=== PATIENT | male | born 1970 | race Caucasian/White ===

== ENCOUNTER 2016-12-03 14:04 | Observation (INO) | payer OTHER ==
[~2016-12-03] VITALS: Ht 175.3 cm; Wt 81.1 kg
[~2016-12-03 14:04] MED LIST: BABY ASA PO; BACL1TAB PO; PRAV20TA PO; VENL150C56 PO; VENL75CA PO
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
[2016-12-03] MEDS ORDERED: BACLOFEN TAB 20 MG TAB PO PRN (15:15)
[2016-12-03] MEDS ORDERED: ONDANSETRON INJ 8 MG in DEXTROSE 5% 50ML 50 ML IV PRN (15:15)
[2016-12-03] MEDS ORDERED: HYDROmorphone INJ 0.5 MG/0.5 ML SYR IV PRN (15:15)
[2016-12-03] MEDS ORDERED: NALOXONE HCL 0.4 MG/1 ML VIAL/CARP IV PRN ×2 (15:15→18:00)
[2016-12-03] MEDS ORDERED: DIAZEPAM 5MG TAB PO PRN (15:15)
[2016-12-03] MEDS ORDERED: CEFTRIAXONE SOD INJ 1 GM in DEXTROSE 5% ADD-VANTAGE 50ML 50 ML IV SCH (15:15)
[2016-12-03] MEDS ORDERED: HYDROCODONE/ACETAMOPHEN 5/325MG TAB PO PRN (15:15)
[2016-12-03] MEDS: LACTATED RINGER'S 1000ML 1,000 ML IV SCH (15:30)
[2016-12-03 16:02] VITALS: BP 120/78; PULSE 81; TEMP 36.8; O2SAT 94; Ht 175.3 cm; Wt 81.1 kg
[2016-12-03] MEDS ORDERED: VANCOMYCIN INJ 1,000 MG in SODIUM CHLORIDE 0.9% 250ML 250 ML IV SCH ×3 (16:15→22:00)
[2016-12-03 16:23] LABS: BASO % 0.4 %; BASO ABS # 0.04 K/uL (0-0.2); EOS % 1.1 %; IG% 0.2 %; LYMPH ABS # 1.69 K/uL (1.2-3.4); MEAN CELL VOLUME 85.4 fL (80-100); MEAN CORPUSCULAR HEMOGLOBIN 31.7 pg (25-34); MEAN PLATELET VOLUME 9.1 fL (7.4-10.4); MONO % 6.4 %; NEUT % 74.9 %; PLATELET COUNT 171 K/uL (130-400); RED BLOOD COUNT 4.92 M/uL (4.7-6.1); WHITE BLOOD COUNT 9.96 K/uL (4.8-10.8)
[2016-12-03] MEDS ORDERED: IV FLUIDS COMPLETED PRN (16:30)
[2016-12-03 16:58] LABS: CREATININE 0.67 mg/dl (0.60-1.40); POTASSIUM 4.4 mmol/L (3.5-5.1)
[2016-12-03 17:38] LABS: COMPLETE YES; MEAN CORPUSCULAR HGB CONC 37.1 g/dl (32-36)
[2016-12-03] MEDS ORDERED: ONDANSETRON INJ 2 MG/ML 2 ML VIAL IV PRN (18:00)
[2016-12-03] MEDS ORDERED: FLUMAZENIL 0.1 MG/1 ML 10 ML VIAL IV PRN (18:00)
[2016-12-03] MEDS ORDERED: EpHEDrine SULFATE INJ 50 MG/ML AMP IV PRN (18:00)
[2016-12-03] MEDS ORDERED: PHENYLEPHRINE 100MCG/ML 5ML SYR IV PRN (18:00)
[2016-12-03] MEDS ORDERED: FENTANYL CITRATE INJ 50 MCG/1 ML 2 ML VIAL IV PRN (18:00)
[2016-12-03] MEDS ORDERED: MEPERIDINE HCL 25 MG/ML CARP IV PRN (18:00)
[2016-12-03] MEDS ORDERED: ATROPINE SULFATE 0.1 MG/ML 5ML SYR IV PRN (18:00)
[2016-12-03] MEDS ORDERED: LABETALOL HCL IV 5 MG/ML 20ML IV PRN (18:00)
[2016-12-03] MEDS ORDERED: HYDROmorphone INJ 2 MG/ML SYR/VIAL IV PRN (18:00)
[2016-12-03] MEDS ORDERED: FENTANYL CITRATE INJ 50 MCG/1 ML 2 ML VIAL ONE (19:36)
[2016-12-03] MEDS ORDERED: LIDOCAINE HCL 2% 2 ML VIAL (20MG/ML) ONE (19:36)
[2016-12-03] MEDS ORDERED: MIDAZOLAM HCL 1 MG/ML 2ML VIAL ONE (19:36)
[2016-12-03] MEDS ORDERED: PROPOFOL IV EMULSION 10 MG/ML 20 ML VIAL IV ONE (19:41)
[2016-12-03] MEDS ORDERED: DEXAMETHASONE SOD INJ 4 MG/ML VIAL ONE (19:41)
[2016-12-03] MEDS ORDERED: ONDANSETRON INJ 2 MG/ML 2 ML VIAL ONE (19:42)
[2016-12-03] MEDS ORDERED: NEOSTIGMINE METHYLSULFATE 5 MG/5 ML SYR ONE (20:17)
[2016-12-03] MEDS ORDERED: GLYCOPYRROLATE INJ 0.2 MG/ML VIAL ONE (20:17)
[2016-12-03] MEDS ORDERED: BACITRACIN 50000 UNIT VIAL IR ONE (20:50)
[2016-12-03] MEDS ORDERED: KETOROLAC TROMETHAMINE 30 MG/ML VIAL ONE (20:50)
[2016-12-03] MEDS ORDERED: BUPIVACAINE/EPINEPHRINE 0.25% 1:200,000 30 ML VIAL INJ ONE (20:52)
--- NOTE | 2016-12-03 21:16 | [facility] Post Operative Brief Note ---
Immediate Operative Summary Operative Date Dec 03, 2016. Pre-Operative Diagnosis End of Life Intrathecal Baclofen Pump Post-Operative Diagnosis End of Life Intrathecal Baclofen Pump Procedure(s) Performed Intrathecal Pain Pump Replacement, Catheter Access Port Study, Analysis and Reprogramming of Intrathecal Pump Surgeon Dr. Starks Manufacturing Advisor Surgeon(s) none Estimated Blood Loss 10ml Findings uncomplicated pump exchange Specimens A. End of life explanted pump Drains none Anesthesia GETA Complication(s) None Disposition Recovery Room / PACU
[2016-12-03] MEDS ORDERED: BACLOFEN 10 MG TAB PO SCH (21:30)
--- NOTE | 2016-12-03 21:32 | Operative Note-Pain Management ---
Pain Clinic Operative Note PROCEDURE PERFORMED: Intrathecal pump replacement, catheter access port study, pump interrogation, reprogramming, and anaylsis. PREOPERATIVE DIAGNOSIS: end of life intrathecal pump POSTOPERATIVE DIAGNOSIS: Same. COMPLICATIONS: None. SURGEON: Dr. Iona Starks. ANESTHESIA: General. MATERIAL FORWARDED TO THE LAB: Explanted intrathecal pump. EBL:10ml INDICATIONS: The patient presented to the [facility] pain clinic with a an end of life pump alarming with motor stall, thus requiring replacement. The patient was explained the risks, benefits, alternatives of the procedure and agreed to proceed as above. Informed consent was obtained and witnessed. A time out was performed after the patient was brought into the Operating Room. Antibiotics were given. The patient was then induced with general anesthesia without complications and was placed in the left lateral position. The skin was prepped with duraprep and betadine and draped in sterile fashion. The existing pump was identified and using a scalpel, electrocautery, and blunt dissection, the existing pump was exposed. The four retaining sutures were removed and the old pump was explanted. The catheter was disconnected from the old pump and free flowing CSF was noted. 2 mL of CSF was aspirated from the catheter without difficulty. The new pump was opened and prepared according to [employer] standards. New baclofen 1500 mcg/mL was placed into the new pump. The pump catheter was secured to the new pump according to [employer] standards. The catheter access port was accessed and revealed free flowing CSF. Next, the pocket was irrigated with 3 bulb syringes full of sterile normal saline with bacitracin. Hemostasis was achieved. The new pump was placed into the pocket in the 12 O'clock position. The intrathecal pump was anchored in the pocket with 4 0 Prolene sutures. No complications were noted after the intrathecal pump was placed inside the pocket. Aspiration from the catheter access port revealed free flowing CSF. The skin and subcutaneous tissues of both incisions were closed with O-VLOC and then 2-O VLOC running sutures without complications. The skin was cleansed and dried and Prineo dermabond dressing was placed over the incision. Next, 4 x 4's and Tegaderms were placed for closure dressings. An abdominal binder was placed on the patient. No complications were noted throughout the procedure. The patient tolerated the procedure and general anesthesia well and was extubated at the end of the procedure. The patient was then transferred back to the [facility] and was taken to the recovery room in stable condition. The patient will follow up with our clinic within 14 days for further evaluation and care. Pump size inserted: 20ml Medication placed in pump: Baclofen 1,5000mcg/ml to run in Flex dosing for a total daily dose of 291 g per day. I attest to the content of the Intraoperative Record and any orders documented therein. Any exceptions are noted below.
--- NOTE | 2016-12-03 21:44 | Anesthesiology Progress Note ---
Anesthesia Post Op Note Date & Time Dec 03, 2016 at 21:43 Vital Signs Pain Intensity: 0 Vital Signs Past 12 Hours Date Time Temp Pulse Resp B/P (MAP) Pulse Ox O2 Delivery O2 Flow Rate FiO2 12/03/16 21:35 97 18 139/86 97 Oxymask 6 12/03/16 21:25 99 18 135/92 99 Oxymask 10 12/03/16 21:15 36.7 107 21 149/83 96 Oxymask 10 12/03/16 16:02 36.8 81 20 120/78 94 Room Air Notes Mental Status: alert / awake / arousable, participated in evaluation Pt Amnestic to Procedure: Yes Nausea / Vomiting: adequately controlled Pain: adequately controlled Airway Patency, RR, SpO2: stable & adequate BP & HR: stable & adequate Hydration State: stable & adequate Anesthetic Complications: no major complications apparent
[2016-12-03] MEDS ORDERED: ACETAMINOPHEN 500 MG TAB PO PRN (21:45)
[2016-12-03] MEDS ORDERED: ZOLPIDEM TARTRATE 5 MG TAB PO PRN (21:45)
[2016-12-03 22:08] VITALS: BP 125/79; PULSE 89; TEMP 37.2; O2SAT 91
[2016-12-03] MEDS: DOCUSATE SODIUM 100 MG CAP PO SCH (22:10)
[2016-12-03 22:14] VITALS: O2SAT 93
[2016-12-03] MEDS ORDERED: NURSING VERBAL MED ORDER ONE (23:00)
[2016-12-03] MEDS ORDERED: VENLAFAXINE HCL XR 150 MG CAPXR PO SCH (23:00)
[2016-12-03] MEDS ORDERED: PRAVASTATIN SOD 20 MG TAB PO SCH (23:00)
[2016-12-03] MEDS ORDERED: VENLAFAXINE HCL XR 75 MG CAPXR PO SCH (23:00)
[2016-12-03 23:29] VITALS: BP 111/66; PULSE 88; O2SAT 97
[2016-12-04] VITALS (7 sets, daily range): BP systolic 108–122; BP diastolic 64–80; PULSE 82–96; TEMP 36.7–37; O2SAT 93–98
[2016-12-04 01:01] LABS: URINE APPEARANCE CLEAR (CLEAR); URINE BILIRUBIN NEG (NEG); URINE COLOR YELLOW; URINE NITRITE NEG (NEG); URINE PH 6.5 (4.5-7.5); URINE SPECIFIC GRAVITY 1.016 (1.000-1.030); UROBILINOGEN NEG (NEG); ZZUR CULT IF INDIC CLEAN CATCH NO
[2016-12-04 01:07] LABS: MANUAL MICROSCOPIC REQUIRED? NO; REVIEW REQ? NO
[2016-12-04] MEDS: LACTATED RINGER'S 1000ML 1,000 ML IV SCH (01:30)
[2016-12-04] MEDS ORDERED: VANCOMYCIN INJ 1,000 MG in SODIUM CHLORIDE 0.9% 250ML 250 ML IV SCH ×4 (06:30)
--- NOTE | 2016-12-04 07:59 | Discharge Instructions ---
Discharge Instructions Date of Service Dec 04, 2016. Visit Reason for Visit: Failure Of Intrathecal Baclofen Pump Discharge Discharge Diagnosis / Problem: Intrathecal pump revision/replacment due to pump failure Discharge Goals Goal(s): Improve function, Increase independence Activity Recommendations Activity Recommendations: no repetitive bending, no repetitive twists, no repetitive reaching over head, no showers for 3 days Lifting Limitations: no more than 5 pounds Exercise/Sports Limitations: rest today May Resume Sexual Activity: after follow-up appointment Shower/Bathe: may shower/bathe in 3 days Driving or Machine Use: no limitations Anesthesia . Post Anesthesia Instructions: If you have had General Anesthesia or IV Sedation: * Do not drive today. * Resume driving when surgeon permits. * Do not make important decisions or sign legal documents today. * Call surgeon for: * Temperature elevations greater than 101 degrees F. * Uncontrollable pain. * Excessive bleeding. * Persistent nausea and vomiting. * Medication intolerance (nausea, vomiting or rash). * For nausea and vomiting use only clear liquids such as: tea, soda, bouillon until nausea subsides, then gradually increase diet as tolerated. * If you have any concerns or questions, call your surgeon's office. If physician is unavailable and it is an emergency, call 911 or go to the nearest emergency room. . Instructions Instructions / Follow-Up . * Change dressings daily. Apply sterile dry gauze. * Call [facility] [phone] or go to the nearest emergency room if he experience high fevers, new back pain, new neurological symptoms such as numbness or weakness in the lower extremity or new bowel bladder incontinence. Also of call if he experience a headache that is positional. * Wear abdominal binder. * No showers for 3 days. * Resume normal activity. No repetitive bending, twisting or reaching overhead for 2 weeks. Do not lift more than 5 pounds for 2 weeks. . Follow-Up Follow-Up: 1 week in office for wound check, staple removal in 2 weeks at clinic (2 week follow-up 12/18/2016 @ 1 PM) Diet Recommendations Home Diet: no limitations, resume previous diet Procedures Procedures Performed: Intrathecal Pain Pump Replacement, Catheter Access Port Study, Analysis and Reprogramming of Intrathecal Pump Pending Studies Studies pending at discharge: no Medical Emergencies . Who to Call and When: Medical Emergencies: If at any time you feel your situation is an emergency, please call 911 immediately. . Non-Emergent Contact Non-Emergency issues call your: Pain Management provider Call Non-Emergent contact if: you have a fever, wound has increased drainage, wound has increased redness, wound has increased pain, you have any medication questions [phone] . Past History Medical & Surgical History: (1) Baclofen intrathecal pump failure . "Provider Documentation" section prepared by [employer]. .
[2016-12-04] MEDS ORDERED: PRAVASTATIN SOD 20 MG TAB PO SCH (08:00)
[2016-12-04] MEDS: DOCUSATE SODIUM 100 MG CAP PO SCH (08:07)
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
[2016-12-04] MEDS ORDERED: VENLAFAXINE HCL XR 150 MG CAPXR PO SCH (09:00)
[2016-12-04] MEDS ORDERED: VENLAFAXINE HCL XR 75 MG CAPXR PO SCH (09:00)
--- NOTE | 2016-12-04 10:25 | Anesthesiology Progress Note ---
Anesthesia Post Op Note Date & Time Dec 04, 2016 at 10:24 Vital Signs Pain Intensity: 0.0 Vital Signs Past 12 Hours Date Time Temp Pulse Resp B/P (MAP) Pulse Ox O2 Delivery O2 Flow Rate FiO2 12/04/16 09:35 36.7 82 18 98 Room Air 12/04/16 08:00 Room Air 12/04/16 07:19 36.7 82 18 108/64 (79) 98 Room Air 12/04/16 04:00 94 Room Air 12/04/16 03:48 37.0 94 18 111/71 (84) 94 Room Air 12/04/16 01:08 88 16 122/80 (94) 93 Room Air 12/04/16 00:08 96 18 122/74 (90) 96 Nasal Cannula 2.0 12/04/16 00:02 96 Nasal Cannula 2.0 12/03/16 23:29 88 18 111/66 (81) 97 Notes Mental Status: alert / awake / arousable, participated in evaluation Pt Amnestic to Procedure: Yes Nausea / Vomiting: adequately controlled Pain: adequately controlled Airway Patency, RR, SpO2: stable & adequate BP & HR: stable & adequate Hydration State: stable & adequate Anesthetic Complications: no major complications apparent
--- NOTE | 2016-12-04 11:20 | Discharge Summary ---
Discharge Summary Date of Service Dec 04, 2016. Discharge Summary Admission Date: Dec 03, 2016 at 15:43 Discharge Date: Dec 04, 2016 Discharge Disposition: Home Principal Diagnosis: Chronic intractable extremity spasticity secondary to history of spinal cord injury requiring implantation of intrathecal baclofen pump and catheter delivery system with intrathecal pump failure requiring revision/replacement Procedures: Intrathecal baclofen pump revision/replacement Medication Reconciliation Continued Medications: Baclofen (Lioresal) 10 Mg Tab 10 MG PO PRN, #30 TAB Pravastatin (Pravachol ) 20 Mg Tab 20 MG PO QD@08, TAB Venlafaxine Hcl (Effexor Xr) 75 Mg Cap 1 CAP PO DAILY for 30 Days, #30 CAP 1 Refill Venlafaxine Hcl (Effexor Extended Rel) 150 Mg Cap 1 CAP PO DAILY for 30 Days, #30 CAP 1 Refill [Baby Asa] () 81 MG PO DAILY Hospital Course Patient was admitted on 12/03/2016 due to intrathecal baclofen pump malfunction. Patient was taken to operating room and intrathecal pump was revised/replaced by Dr. Iona Starks without complications. The patient began experiencing some slight increase in spasticity last evening which has at this time resolved as the pump is currently functioning correctly and appropriately. The patient utilize oral baclofen minimally for breakthrough spasticity. The patient was indicating adequate spasticity control upon today' s examination reporting that he was at his "baseline". Incisional site dressing was changed and instructions were provided. He will continue with abdominal binder usage 24 hours per day. Dressing changes will occur daily. He was then discharged to home. Total time spent on discharge = 30 minutes This includes examination of the patient, discharge planning, medication reconciliation, and communication with other providers. Discharge Instructions 1. Wound care instructed with daily dressing change 2. 24 hour use of the abdominal binder 3. Tylenol versus hydrocodone for incisional site pain-patient has prescription for hydrocodone with instructions on utilization 4. No tub baths, but patient may shower after 3 days 5. Contact the office immediately at [phone] for fevers, chills, night sweats, incisional drainage, increased spasticity or any other concerns.
[2017-01-15] MEDS ORDERED: ASPI1TAB83 PO (14:31)
== END 2016-12-04 10:41 | disposition home or self-care (01) ==
LOC: INTOOBSV 15:11 → C.2T 15:11 → UNDOADMIN 15:43 → UNDODISIN 12-04 10:41
PROVIDERS: ADMIT Anesthesiology; ATTEND Anesthesiology
DX: T85.698A Other mechanical complication of other specified internal prosthetic devices, implants and grafts, initial encounter (principal); Y83.1 Surgical operation with implant of artificial internal device as the cause of abnormal reaction of the patient, or of later complication, without mention of misadventure at the time of the procedure; M62.830 Muscle spasm of back; E78.5 Hyperlipidemia, unspecified; G82.52 Quadriplegia, C1-C4 incomplete; S34.109S Unspecified injury to unspecified level of lumbar spinal cord, sequela; S14.103S Unspecified injury at C3 level of cervical spinal cord, sequela; S14.104S Unspecified injury at C4 level of cervical spinal cord, sequela; S14.105S Unspecified injury at C5 level of cervical spinal cord, sequela; S14.106S Unspecified injury at C6 level of cervical spinal cord, sequela; S14.107S Unspecified injury at C7 level of cervical spinal cord, sequela; V89.2XXS Person injured in unspecified motor-vehicle accident, traffic, sequela; Z79.82 Long term (current) use of aspirin

== ENCOUNTER 2020-01-27 10:03 | Inpatient (IN) ==
--- NOTE | 2020-01-27 10:37 | Emergency Department Note ---
Impression & Plan Spasticity, Presence of intrathecal baclofen pump ED Provider Note Provider: Ramesh Silva MD DATE OF SERVICE:01/27/2020 CHIEF COMPLAINT: Contractures HISTORY OF PRESENT ILLNESS: Patient is a 49-year-old gentleman distant history of cervical spinal injury with some resultant spasticity presenting here today reports when he woke this morning around 8:00 of significant contractures predominantly of his legs and also noted of his bilateral upper arms. Denies any headache or recent trauma. States he was doing well yesterday before he went to bed but was a bit more active. Denies any trouble breathing or chest pain. Denies abdominal discomfort at this point. States occasionally had a little bit of lower inguinal discomfort at times and did have a hernia repair this summer but denies significant bulge or significant discomfort at this point. Patient denies diarrhea or nausea or vomiting. Patient said shortly stroking this event. Did take 2.5 mg of oral Valium which made him a bit drowsy but did not help his contractures very much prior to arrival. Patient does have an intrathecal baclofen pump which he states he will follow with pain management for not been having issues. Denies recent medication change. Patient states he has had events like this in the past but is been some time and sensor would might provoke this. Also reports that he was a bit diaphoretic but afebrile at 96 Fahrenheit when he awoke. Normally ambulates with a cane without significant issue. He denies any alarming from his baclofen pump. REVIEW OF SYSTEMS: A total of 10 review of systems was obtained and negative except as stated above in the HPI. PAST MEDICAL HISTORY: As noted above reviewed Medications: Home medication list SOCIAL HISTORY: Lives at home, non-smoker, PHYSICAL EXAM: GENERAL: alert and oriented on stretcher with obvious contracture of the extremities Head: normocephalic and atraumatic EYES: No injection, discharge or icterus. NECK: Trachea midline. Supple. ENT: Mucous membranes pink and moist. LUNGS: Airway patent. No retractions. Breath sounds clear HEART: Regular rate and rhythm. No chest wall tenderness ABDOMEN: Soft and non-tender, without guarding or rebound. Right-sided abdominal wall subcutaneous mass noted consistent with prior pain pump. SKIN: Acyanotic, warm, dry, without rashes EXTREMITIES: Without swelling, tenderness or deformity NEUROLOGICAL: No aphasia or slurred speech. Patient has no diminished sensation in the extremities. The upper and lower extremities have moderate contracture without any muscle wasting appreciated. EK bpm sinus tachycardia without PVC or PAC. No acute ST segment elevation or depression noted. Right bundle branch block is noted. CONTINUOUS CARDIAC MONITORING: was ordered and showed a heart rate of 98 bpm in normal sinus rhythm PDMP was checked without noted issue. Patient's laboratory studies and imaging reviewed. Differential includes Infection, dehydration, metabolic abnormality, hypo/hyperglycemia, electrolyte disturbance, anemia, hypoxia, cardiac sources, intracerebral event, toxicologic, neurologic, as well as other pathologies. IMPRESSION/MEDICAL DECISION MAKING: Patient presents here today onset of contractures likely related to history of prior cervical spine injury. Not having acute weakness or numbness. I doubt acute CVA. Reports a few chills and mild diaphoresis earlier but unsure what may be provoking symptoms at this point. Try a little bit of time prior to arrival with minimal effect given additional he was on IV fluids. Broad differential was entertained and broad work-up ordered to look for possible metabolic or infectious issues that may be causing his symptoms. Denies any URI symptoms or shortness of breath. There is no obvious evidence of abdominal tenderness or abdominal mass. Laboratory studies show a borderline leukocytosis of 10.[address] ALT above normal but no significant evidence of severe metabolic derangements explaining this. CK is not elevated. Urinalysis is still pending collection at this point. Not having to infectious symptoms and do not see clear source that could be provoking worsening spasticity at this point. Patient had some improvement after intravenous Valium and they have been working to try to stretch of the room. Ambulatory trial was held. Patient was unable to be even assisted out of bed due to his rigidity. Discussed with patient will try dose of oral baclofen. No alarms were noted on the pump per patient his but discussed with the pain management clinic who will come interrogate the pump. Reports he had a similar issue several years ago that self resolved but does not sound as severe. Also before that had issues requiring pump replacement once in the past. Pain management states he interrogated the pump there is no abnormality detected. X-rays were obtained to ensure catheter was not in discontinuity and though somewhat suboptimal x-rays do not show an acute issue. Patient still with significant spasticity. Discussed with the patient and he is having difficulty even walking at this point. I concerns about ability to do ADLs and function at home like this. In discussion with pain management/anesthesia Dr. Hay, recommended this time admission. Will utilize oral Valium and baclofen to try to help with spasticity. Evaluation thus far looks reassuring regarding the pump if there is continued issues he states may need to have further investigation of the pump itself and if in the unlikely event there is a true pump issue patient can develop life-threatening baclofen withdrawal if sent home. DIAGNOSIS: Spasticity DISPOSITION: Hospitalist will evaluate Patient was agreeable with this plan Past Med/Surg History Medical History (Updated 01/27/20 @ 15:40 by Ramesh Silva M.D.) Cervical cord myelomalacia Depressive disorder Dyslipidemia Muscle spasticity Presence of intrathecal baclofen pump Surgical History History of cervical spinal surgery 2007 History of inguinal herniorrhaphy 2009 History of orthopedic surgery Right femur surgery 2007 Social History Smoking Status: Never smoker Hx Alcohol Use: No Hx Substance Use: No Preferred Language: Y[place] Visual Impairment: No Limitations Hearing Ability: Normal Beliefs That Will Affect Care: None marital status: Current Living Situation: Spouse current occupational status: disabled Feels Safe at Home: Yes Allergies Allergies Allergy/AdvReac Type Severity Reaction Status Date / Time Penicillins Allergy Unknown ANAPHYLAXIS Verified 01/27/20 10:56 Home Meds Home Medications Medication Instructions Recorded Confirmed aspirin 81 mg tablet,delayed 81 mg PO Q2D 02/03/18 01/27/20 release simvastatin 20 mg tablet 20 mg PO QPM 02/03/18 01/27/20 venlafaxine 150 mg 150 mg PO QPM 04/22/18 01/27/20 capsule,extended release 24 hr diazepam 5 mg tablet 2.5 mg PO UD 01/13/19 01/27/20 venlafaxine 75 mg PO QPM 01/27/20 01/27/20 Results & Data (ED) Vital Signs Vital Signs - 24 hr 01/27/20 10:18 01/27/20 10:59 01/27/20 12:00 Temperature 36.6 C Temperature Source Oral Pulse Rate 106 H 70 Pulse Rate [Finger] 100 H Pulse Rate from SpO2 Sensor 69 Respiratory Rate 20 16 16 Blood Pressure 110/91 108/70 Blood Pressure [Right Arm] 128/76 Blood Pressure Mean 97 82 Blood Pressure Mean [Right Arm] 93 Pulse Oximetry 94 92 99 Oxygen Delivery Method Room Air Room Air Sepsis Recent Fever Within 48 Hours No Sepsis New/Unexplained Change in Mental Status No Sepsis Action Taken by Nursing No Action Required 01/27/20 12:30 01/27/20 13:51 01/27/20 14:00 Temperature Temperature Source Pulse Rate 68 105 H 102 H Pulse Rate [Finger] Pulse Rate from SpO2 Sensor 68 Respiratory Rate 16 21 21 Blood Pressure 113/66 128/71 107/72 Blood Pressure [Right Arm] Blood Pressure Mean 75 85 83 Blood Pressure Mean [Right Arm] Pulse Oximetry 98 94 93 Oxygen Delivery Method Sepsis Recent Fever Within 48 Hours Sepsis New/Unexplained Change in Mental Status Sepsis Action Taken by Nursing 01/27/20 14:30 01/27/20 15:47 Temperature Temperature Source Pulse Rate 102 H Pulse Rate [Finger] Pulse Rate from SpO2 Sensor 96 H Respiratory Rate 21 Blood Pressure 115/74 98/54 L Blood Pressure [Right Arm] Blood Pressure Mean 81 80 Blood Pressure Mean [Right Arm] Pulse Oximetry 95 95 Oxygen Delivery Method Sepsis Recent Fever Within 48 Hours Sepsis New/Unexplained Change in Mental Status Sepsis Action Taken by Nursing Laboratory Data Result diagrams: 01/27/20 10:22 01/27/20 10:22 Lab Results 01/27/20 01/27/20 01/27/20 Range/Units 10:22 10:22 10:22 WBC 10.84 H (4.8-10.8) K/uL RBC 5.27 (4.7-6.1) M/uL Hgb 16.0 (14.0-18.0) g/dL Hct 45.9 (42-52) % MCV 87.1 (80-100) fL MCH 30.4 (25-34) pg MCHC 34.9 (32-36) g/dL RDW Std Deviation 40.4 (36.4-46.3) fL RDW Coeff of Rachell 12.6 (11.5-14.5) % Plt Count 218 (130-400) K/uL MPV 9.8 (7.4-10.4) fL Immature Gran % (Auto) 0.2 % Neut % (Auto) 85.9 % Lymph % (Auto) 8.4 % Casey % (Auto) 4.9 % Eos % (Auto) 0.4 % Baso % (Auto) 0.2 % Neut # (Auto) 9.32 H (1.4-6.5) K/uL Lymph # (Auto) 0.91 L (1.2-3.4) K/uL Casey # (Auto) 0.53 (0.11-0.59) K/uL Eos # (Auto) 0.04 (0-0.5) K/uL Baso # (Auto) 0.02 (0-0.2) K/uL Immature Gran # (Auto) 0.02 (0.00-0.02) K/uL Sodium 137 (136-145) mmol/L Potassium 4.5 (3.5-5.1) mmol/L Chloride 106 (98-107) mmol/L Carbon Dioxide 27 (21-32) mmol/L Anion Gap 5.0 (3-11) BUN 17 (7-18) mg/dl Creatinine 0.78 (0.6-1.4) mg/dl Est Cr Clr Drug Dosing 122.0 ml/min Est GFR ( Amer) 121.1 Est GFR (Non-Af Amer) 104.5 BUN/Creatinine Ratio 22.0 H (10-20) Glucose 104 H (70-99) mg/dl Calcium 9.3 (8.5-10.1) mg/dl Magnesium 2.3 (1.8-2.4) mg/dl Total Bilirubin 0.4 (0.2-1) mg/dl AST 38 H (15-37) U/L ALT 96 H (12-78) U/L Alkaline Phosphatase 74 (45-117) U/L Total Creatine Kinase 270 (39-308) U/L Troponin I < 0.015 (0-0.045) ng/ml Total Protein 7.8 (6.4-8.2) gm/dl Albumin 3.9 (3.4-5.0) gm/dl Globulin 3.9 (2.5-4.0) gm/dl Albumin/Globulin Ratio 1.0 (0.9-2) Procalcitonin < 0.05 (0-0.5) ng/ml TSH 1.870 (0.300-4.500) uIu/ml Administered Medications Discontinued Medications Baclofen (Baclofen 10 Mg Tab) 10 mg PO ONCE ONE Stop: 01/27/20 13:25 Last Admin: 01/27/20 13:47 Dose: 10 mg Documented by: [id number] Diazepam (Diazepam 5 Mg/Ml Inj 10ml Vial) 5 mg IV NOW STA Stop: 01/27/20 10:37 Last Admin: 01/27/20 10:55 Dose: 5 mg Documented by: [id number] Sodium Chloride (Nss 1000ml) 1,000 mls @ 999 mls/hr IV .Q1H1M LENY Stop: 01/27/20 11:45 Last Infusion: 01/27/20 11:56 Dose: 0 mls/hr Documented by: [id number] Admin: 01/27/20 10:55 Dose: 999 mls/hr Documented by: [id number] Discharge Plan Visit Data Chief Complaint: Pain (Generalized) ED Provider: Ramesh Silva Discharge Problem: Spasticity, Presence of intrathecal baclofen pump Forms Stand Alone Forms: [facility] Prescriptions Prescriptions: No Action venlafaxine [Effexor XR] 150 mg capsule,extended release 24hr 150 mg PO QPM RF: 0 diazepam [Valium] 5 mg tablet 2.5 mg PO UD RF: 0 aspirin [Adult Low Dose Aspirin] 81 mg tablet,delayed release (DR/EC) 81 mg PO Q2D RF: 0 simvastatin [Zocor] 20 mg tablet 20 mg PO QPM RF: 0 venlafaxine 75 mg capsule,extended release 24hr 75 mg PO QPM RF: 0
[2020-01-27] MEDS ORDERED: SODIUM CHLORIDE 0.9% 1000ML 1,000 ML IV SCH (10:45)
[2020-01-27 11:02] LABS: Basophils # (auto) 0.02 K/uL (0-0.2); Basophils % (auto) 0.2 %; Eosinophils # (auto) 0.04 K/uL (0-0.5); Eosinophils % (auto) 0.4 %; Hematocrit (blood only) 45.9 % (42-52); Immature Granulocytes # (auto) 0.02 K/uL (0.00-0.02); Immature Granulocytes % (auto) 0.2 %; Lymphocytes # (auto) 0.91 K/uL (1.2-3.4); Lymphocytes % (auto) 8.4 %; Mean Corpuscular Hemoglobin 30.4 pg (25-34); Mean Corpuscular Hgb Conc 34.9 g/dL (32-36); Mean Corpuscular Volume 87.1 fL (80-100); Mean Platelet Volume 9.8 fL (7.4-10.4); Monocytes # (auto) 0.53 K/uL (0.11-0.59); Monocytes % (auto) 4.9 %; Neutrophils # (auto) 9.32 K/uL (1.4-6.5); Neutrophils % (auto) 85.9 %; Platelet Count 218 K/uL (130-400); RDW Coefficient of Variation 12.6 % (11.5-14.5); RDW Standard Deviation 40.4 fL (36.4-46.3); Red Blood Count 5.27 M/uL (4.7-6.1); White Blood Count 10.84 K/uL (4.8-10.8)
[2020-01-27 11:07] LABS: Alanine Aminotransferase 96 U/L (12-78); Albumin Level 3.9 gm/dl (3.4-5.0); Aspartate Aminotransferase 38 U/L (15-37); Blood Urea Nitrogen 17 mg/dl (7-18); Calcium 9.3 mg/dl (8.5-10.1); Carbon Dioxide 27 mmol/L (21-32); Chloride 106 mmol/L (98-107); Est GFR (African American) 121.1; Est GFR (Non-African American) 104.5; Glucose 104 mg/dl (70-99); Magnesium 2.3 mg/dl (1.8-2.4); Potassium 4.5 mmol/L (3.5-5.1); Sodium 137 mmol/L (136-145)
[2020-01-27 11:18] LABS: Alkaline Phosphatase 74 U/L (45-117); Bilirubin,Total 0.4 mg/dl (0.2-1); Creatine Kinase 270 U/L (39-308); Globulin 3.9 gm/dl (2.5-4.0); Total Protein 7.8 gm/dl (6.4-8.2); Troponin I < 0.015 ng/ml (0-0.045)
--- NOTE | 2020-01-27 11:21 | XRay Report ---
KUB CLINICAL HISTORY: Contractures. Baclofen pump. Weakness. FINDINGS: An AP supine abdominal radiograph is correlated with spinal radiographs dated 06/09/2017. Th ere is a nonobstructed abdominal bowel gas pattern noting moderate colonic fecal retention. No eviden ce of intraperitoneal free air is seen on this supine image. An IVC filter is in place. There are no abnormal abdominal calcifications. A pain pump device projects over the right lower quadrant. The cat heter enters the central canal at the level of L3 and extends into the thoracic region. The visualize d portions of the catheter appear intact. The skeletal structures are osteopenic but appear maintaine d. There is mild lumbosacral spondylosis and scoliosis. IMPRESSION: Moderate constipation. Electronically signed by: Brandyn Nicholas M.D. 01/27/2020 11:20 AM
--- NOTE | 2020-01-27 11:25 | XRay Report ---
XR chest 1V portable CLINICAL HISTORY: weakness COMPARISON STUDY: No previous studies for comparison. FINDINGS: Postoperative findings within the cervical spine are partially imaged. There is moderate el evation of the right hemidiaphragm. No consolidation is present. There is no evidence for pulmonary e rosalia. Cardiac size is normal. Mediastinal contours are unremarkable. There is no pneumothorax or pleu ral effusion. IMPRESSION: 1. No acute cardiopulmonary findings. 2. Moderate elevation of the right hemidiaphragm. ACT 112: Negative or not required by law. Electronically signed by: Harry Marquez M.D. 01/27/2020 11:23 AM
--- NOTE | 2020-01-27 12:48 | Electrocardiogram Report ---
Test Reason : Blood Pressure : / mmHG Vent. Rate : 106 BPM Atrial Rate : 106 BPM P-R Int : 140 ms QRS Dur : 112 ms QT Int : 366 ms P-R-T Axes : 060 201 044 degrees QTc Int : 486 ms Poor data quality, interpretation may be adversely affected Sinus tachycardia Right bundle branch block Abnormal ECG When compared with ECG of 03-DEC-2016 16:35, Vent. rate has increased BY 37 BPM Right bundle branch block is now Present Confirmed by Antonio Bruce ([id number]) on 01/27/2020 12:48:14 PM Referred By: Confirmed By:Taurus Bruce
[2020-01-27] MEDS ORDERED: BACLOFEN 10 MG TAB PO ONE (13:24)
--- NOTE | 2020-01-27 15:10 | XRay Report ---
XR lumbar spine min 4V routine HISTORY: 49 years-old Male pump catheter pain pump and catheter with possible complication. COMPARISON: Thoracic spine radiographs of same day, thoracolumbar radiographs 06/09/2017 TECHNIQUE: 5 views of the lumbar spine FINDINGS: Pack projects over the right flank. Pain pump catheter appears to enter the central canal at the L2-L 3 level, tip projecting superiorly outside the [id number]. Imaged portions of the catheter appeari ng intact. IVC filter is noted at the level of L2-L3. Mild lumbar levoscoliosis. Moderate multilevel interverteb ral disc space narrowing with spondylitic spurring and moderate to severe facet arthrosis. No acute f racture or subluxation. Severe disc space narrowing redemonstrated at L3-L4. Unremarkable soft tissue s. Partially imaged hardware of the right proximal femur. IMPRESSION: 1. Unchanged appearance of the intrathecal catheter with the imaged portions appearing intact. 2. Lumbar levoscoliosis with multilevel degenerative changes as above. 3. No acute fracture or subluxation. ACT 112: Negative or not required by law. The above report was generated using voice recognition software. It may contain grammatical, syntax o r spelling errors. Electronically signed by: Wale Hilton M.D. 01/27/2020 3:09 PM
--- NOTE | 2020-01-27 15:14 | XRay Report ---
XR thoracic spine 3V routine CLINICAL HISTORY: pump catheter COMPARISON STUDY: Thoracolumbar spine radiographs June 09, 2017. FINDINGS: Postoperative findings within the cervical spine are incidentally noted. There is moderate elevation of the right hemidiaphragm. Alignment of the thoracic spine is anatomic. There is no thorac ic spine fracture. Intrathecal catheter is suboptimally assessed on this exam but is likely intact. T ip is at the T8 level. Mild multilevel disc space narrowing and osteophytosis within the thoracic spi ne is noted. IMPRESSION: 1. No thoracic spine fracture or subluxation. 2. 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 3. Intrathecal catheter suboptimally assessed on this exam but likely intact. Tip at the T8 level. ACT 112: Negative or not required by law. Electronically signed by: Harry Marquez M.D. 01/27/2020 3:13 PM
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
[2020-01-27 18:53] LABS: Appearance Urine Clear (Clear); Bilirubin Urine Negative (Negative); Blood Urine Negative (Negative); Color Urine Yellow; Glucose Urine UA Negative (Negative); Ketones Urine Trace (Negative); Leukocyte Esterase Urine Negative (Negative); Nitrite Urine Negative (Negative); Protein Urine Negative (Negative); Specific Gravity Urine 1.018 (1.000-1.030); Urobilinogen Urine Negative (Negative)
--- NOTE | 2020-01-27 19:20 | Pain Management Consultation ---
Date of Consultation January 27, 2020 Assessment & Plan (1) Presence of intrathecal baclofen pump: 1. The patient admits to lifting heavy bags of Lyme weighing at least 40 pounds yesterday and subsequently has abrupt onset of spasms as of 8:00 this morning. I was unable to aspirate from the catheter access port and due to the abrupt nature of his spasms, lack of long-term tolerance of oral muscle relaxants and Valium, negative UA or other outward signs of infection, known fragility of older intrathecal catheters recommend catheter revision/replacement at this time. Patient was counseled on the risks, benefits, potential complications (infection, bleeding, damage to surrounding structures, failure to alleviate spasm, need for additional procedures to treat complications) of the procedure and agrees to proceed. Informed consent was obtained and witnessed. 2. Patient will be n.p.o. after midnight with holding heparin/ASA and instead utilizing SCDs in preparation for the OR. 3. In the interim we will utilize baclofen 10 to 20 mg p.o. every 6 as needed with Valium to minimize spasm. May use dantrolene if failing Valium and oral baclofen. 4. COVID testing has been ordered. Patient is low risk renal having no travel or known exposures in the last 14 days as well as no symptoms at present. 5. All of the above was discussed with patient and and they expressed understanding. (2) Spasticity: (3) Cervical cord myelomalacia: History of Present Illness History of Present Illness 49-year-old male well-known to the [facility] pain management office with a history of chronic lower extremity spasticity secondary to spinal cord injury. 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 He reports that up until this morning at 8 AM he had adequate control of his spasms. Since 8:00 this morning he has had an abrupt change in status with at least double the volume of typical spasm and rigidity. He denies any seizure type activity or outward signs of infection. He denies any fevers or chills. He denies any outward trauma to his intrathecal catheter or pump. Denies any twisting or pulling or snapping sensation. There is been no alarming of the pump he has 43 months on VASU. Dosing has been stable around 450 mcg/day. He denies any COVID signs or symptoms, travel, or potential exposure. He ate a turkey sandwich today at 1425. Allergies Allergy/AdvReac Type Severity Reaction Status Date / Time Penicillins Allergy Unknown ANAPHYLAXIS Verified 01/27/20 10:56 Home Medications Home Medications Medication Instructions Recorded Confirmed Type aspirin 81 mg tablet,delayed 81 mg PO Q2D 02/03/18 01/27/20 History release simvastatin 20 mg tablet 20 mg PO QPM 02/03/18 01/27/20 History venlafaxine 150 mg 150 mg PO QPM 04/22/18 01/27/20 History capsule,extended release 24 hr diazepam 5 mg tablet 2.5 mg PO UD 01/13/19 01/27/20 History venlafaxine 75 mg PO QPM 01/27/20 01/27/20 History Patient History Medical History (Updated 01/27/20 @ 19:16 by Iona Starks DO) Cervical cord myelomalacia Depressive disorder Dyslipidemia Muscle spasticity Presence of intrathecal baclofen pump Surgical History (Updated 01/27/20 @ 19:16 by Iona Starks DO) History of cervical spinal surgery 2007 History of inguinal herniorrhaphy 2009 History of orthopedic surgery Right femur surgery 2007 S/P insertion of intrathecal pump Social History Smoking Status: Never smoker Hx Alcohol Use: No Hx Substance Use: No Preferred Language: Emir[place] Visual Impairment: No Limitations Hearing Ability: Normal Beliefs That Will Affect Care: None marital status: Current Living Situation: Spouse current occupational status: disabled Feels Safe at Home: Yes Physical Exam Physical Exam: Constitutional: Well-developed, well-nourished, healthy- appearing, normal weight accompanied by his on today's examination Psych: Awake, alert, and oriented 3 with normal affect and mood. Recent memory appears grossly intact Eyes: Pupils are equally round and reactive to light with normal size pupils, eyelids appear normal Ear, nose, mouth, and throat: Moist nasal and oral membranes, lips and tongues appear normal, no external ear abnormalities are noted Neck: The trachea is midline without deviation and no thyromegaly is noted Respiratory: Normal respiratory effort without distress, no audible wheezes or rhonchi CV: Normal S1 and S2 extremities are warm Chest: Deferred GI/abdomen: Non-tender without guarding, no masses noted. Intrathecal pump noted in right lower quadrant without abnormality Musculoskeletal: Head is normocephalic and atraumatic, gait is not observed. Patient requires assistance to logroll in bed Patient has double the typical amount of spasticity noted as an outpatient bilateral upper and lower extremities. He has rigidity with clonus noted. I am able to passively extend his phalanges and upper extremity /lower extremities but with difficulty. He requests his to sign legal documents in lieu of himself due to difficulty with holding a pen. Thoracic: Kyphotic curve: Normal Axial intrathecal pump incision without abnormality Lumbar: Lordotic curve: Normal Skin: No rashes, lesions, ulcers, or induration noted Neuro: No nystagmus noted, the tongue is midline, the patient is able to rotate their head bilaterally : Deferred Catheter access port study procedure note Informed consent was obtained and witnessed. Patient's right lower quadrant was prepped with DuraPrep x2 and sterile drapes were applied. Next using a catheter access kit the 24-gauge Polo needle and template, the catheter access port was accessed and no fluid was able to be aspirated from the port. The needle was repositioned for separate times and the patient was rotated in the bed without ability to aspirate from the catheter. The needle was removed the abdomen was cleansed and a bandage was applied. Results (Pain Clinic) Laboratory Review Laboratory results: findings discussed with patient Additional Comments: UA negative Diagnostic Review Radiology: images reviewed and findings discussed with patient Radiology Findings: 01/27/2020 Thoracolumbar and KUB images. Intrathecal catheter is suboptimally visualized on exam. Terminates at T8. Previous Records Review Previous Records: personally reviewed by me Opioid Risk Assessment Opioid Risk Assessment: risk assessment performed and no issues identified
[2020-01-27] MEDS: SIMVASTATIN 20 MG TAB PO SCH (21:03)
[2020-01-27] MEDS: BACLOFEN 20 MG TAB PO SCH (21:03)
[2020-01-27] MEDS: diazePAM 5 MG TABLET PO SCH (21:03)
[2020-01-27] MEDS: VENLAFAXINE HCL XR 75 MG CAPXR PO SCH (21:04)
[2020-01-27] MEDS: VENLAFAXINE HCL XR 150 MG CAPXR PO SCH (21:04)
[2020-01-27] MEDS: POLYETHYLENE (MIRALAX) 17 GM PACK PO SCH (21:04)
[2020-01-28] MEDS: BACLOFEN 20 MG TAB PO SCH ×2 (04:58→14:19)
[2020-01-28] MEDS: diazePAM 5 MG TABLET PO SCH ×3 (04:58→21:40)
[2020-01-28] MEDS ORDERED: ROCURONIUM BROMIDE 10 MG/ML 5 ML VIAL IV ONE ×2 (07:22→11:03)
[2020-01-28] MEDS ORDERED: LIDOCAINE HCL 2% 2 ML VIAL/AMP(20MG/ML) INFIL ONE (07:22)
[2020-01-28] MEDS ORDERED: ONDANSETRON INJ 2 MG/ML 2 ML VIAL ONE (07:22)
[2020-01-28] MEDS ORDERED: DEXAMETHASONE SOD INJ 4 MG/ML VIAL ONE (07:22)
[2020-01-28] MEDS ORDERED: PROPOFOL IV EMULSION 10 MG/ML 20 ML VIAL IV ONE (07:22)
[2020-01-28] MEDS ORDERED: fentaNYL citrate 100 MCG/2 ML VIAL ONE (07:22)
[2020-01-28] MEDS ORDERED: MIDAZOLAM HCL 1 MG/ML 2ML VIAL ONE (07:22)
--- NOTE | 2020-01-28 07:26 | Anesthesiology Consultation ---
Date of Service January 28, 2020 Assessment & Plan Chart Review Chart Review: Acceptable Risk for Surgery and Patient NOT seen in Pre Admission Testing ASA ASA3 Proposed Anesthesia Anesthesia Type: General History Surgery Operation Date: 01/28/20 07:10 Proposed Procedures p Intrathecal Pain Pump replacement - Iona Starks DO Height/Weight Height: 5 ft 9 in Weight: 86.7 kg Allergies Allergy/AdvReac Type Severity Reaction Status Date / Time Penicillins Allergy Unknown ANAPHYLAXIS Verified 01/27/20 10:56 Medications Home Medications Medication Instructions Recorded Confirmed Last Taken aspirin 81 mg tablet,delayed 81 mg PO Q2D 02/03/18 01/27/20 01/26/20 release simvastatin 20 mg tablet 20 mg PO QPM 02/03/18 01/27/20 01/26/20 venlafaxine 150 mg 150 mg PO QPM 04/22/18 01/27/20 01/26/20 capsule,extended release 24 hr diazepam 5 mg tablet 2.5 mg PO UD 01/13/19 01/27/20 Unknown venlafaxine 75 mg PO QPM 01/27/20 01/27/20 01/26/20 Active Medications Generic Name Dose Route Start Last Admin Trade Name Freq PRN Reason Stop Dose Admin Baclofen 20 mg 01/27/20 20:00 01/28/20 04:58 Baclofen 20 Mg Tab PO 02/26/20 19:59 Not Given Q8H LENY Diazepam 5 mg 01/27/20 20:00 01/28/20 04:58 Diazepam 5 Mg Tablet PO 02/26/20 19:59 Not Given Q8H LENY Polyethylene Glycol 17 gm 01/27/20 21:00 01/27/20 21:04 Polyethylene (Miralax) 17 Gm Pack PO 02/26/20 20:59 Not Given BID LENY Simvastatin 20 mg 01/27/20 21:00 01/27/20 21:03 Simvastatin 20 Mg Tab PO 02/26/20 20:59 20 mg QPM LENY Administration Venlafaxine HCl 150 mg 01/27/20 21:00 01/27/20 21:04 Venlafaxine Hcl Xr 150 Mg Capxr PO 02/26/20 20:59 150 mg QPM LENY Administration Venlafaxine HCl 75 mg 01/27/20 21:00 01/27/20 21:04 Venlafaxine Hcl Xr 75 Mg Capxr PO 02/26/20 20:59 75 mg QPM LENY Administration NPO Date Last Intake of Fluids: 01/27/20 Time Last Intake of Fluids: 00:15 Date Last Intake of Solids: 01/27/20 Time Last Intake of Solids: 14:30 Past Medical History Medical History Cervical cord myelomalacia Depressive disorder Dyslipidemia Muscle spasticity Presence of intrathecal baclofen pump Exercise / Class Metabolic Activity III < 4 Walking/Shop/Light housework Past Surgical History Surgical History History of cervical spinal surgery 2007 History of inguinal herniorrhaphy 2009 History of orthopedic surgery Right femur surgery 2007 S/P insertion of intrathecal pump Past Anesthesia History No Hx of Anesthesia Complications and No Family Hx of Anesthesia Complications History of PONV No Hx of PONV and No Hx of Motion Sickness Social History Smoking Status: Never smoker Do You Dip or Chew Tobacco: Yes (Occasionally) Hx Alcohol Use: Yes Alcohol type: beer alcohol intake frequency: 0-2 drinks per day Hx Substance Use: No Physical Exam Vital Signs Last Vital Signs Temp 36.6 C 01/28/20 04:00 Pulse 92 H 01/28/20 04:00 Resp 20 01/28/20 04:00 BP 104/69 01/28/20 04:00 Pulse Ox 97 01/28/20 04:00 Testing Laboratory Results 01/27/20 10:22 01/27/20 10:22 Urine Color Yellow 01/27/20 18:45 Urine Appearance Clear (Clear) 01/27/20 18:45 Urine pH 6.0 (4.5-7.5) 01/27/20 18:45 Ur Specific [place] 1.018 (1.000-1.030) 01/27/20 18:45 Urine Protein Negative (Negative) 01/27/20 18:45 Urine Glucose (UA) Negative (Negative) 01/27/20 18:45 Urine Ketones Trace (Negative) H 01/27/20 18:45 Urine Nitrite Negative (Negative) 01/27/20 18:45 Ur Leukocyte Esterase Negative (Negative) 01/27/20 18:45 Electrocardiogram Date: 01/27/20 Findings: + RBBB and + ST @ (at 106) Chest X-Ray Date: 01/27/20 Findings: + NAD and + R hemidiaphragm elevation
--- NOTE | 2020-01-28 07:56 | History & Physical Bridge Note ---
Date of Service January 28, 2020 History & Physical Bridge Note I have examined the patient, reviewed the History & Physical and in the interval since the performance of the History & Physical I have noted the following changes of clinical significance: no changes noted
[2020-01-28] MEDS ORDERED: IOPAMIDOL INJ 61% 15 ML VIAL ONE (08:10)
[2020-01-28] MEDS ORDERED: LIDOCAINE/EPINE 2% 1:100,000 20ML ONE (08:11)
[2020-01-28] MEDS ORDERED: ePHEDrine sulfate 50 MG/ML AMP IV PRN (09:12)
[2020-01-28] MEDS ORDERED: FLUMAZENIL 0.1 MG/1 ML 10 ML VIAL IV PRN (09:12)
[2020-01-28] MEDS ORDERED: NALOXONE HCL 0.4 MG/1 ML VIAL/CARP IV PRN (09:12)
[2020-01-28] MEDS ORDERED: ONDANSETRON INJ 2 MG/ML 2 ML VIAL IV PRN (09:12)
[2020-01-28] MEDS ORDERED: fentaNYL citrate 100 MCG/2 ML VIAL IV PRN (09:12)
[2020-01-28] MEDS ORDERED: PROMETHAZINE HCL 12.5 MG in SODIUM CHLORIDE 0.9% 50 ML IV PRN (09:12)
[2020-01-28] MEDS ORDERED: LABETALOL HCL IV 5 MG/ML 20ML IV PRN (09:12)
[2020-01-28] MEDS ORDERED: ATROPINE SULFATE 0.1 MG/ML 10ML SYR IV PRN (09:12)
[2020-01-28] MEDS ORDERED: PHENYLEPHRINE 100MCG/ML 5ML SYR ONE (09:30)
[2020-01-28] MEDS ORDERED: SODIUM CHLORIDE 0.9% INJ 10 ML VIAL ONE (10:14)
[2020-01-28] MEDS ORDERED: GLYCOPYRROLATE 0.2 MG/ML VIAL ONE (10:31)
[2020-01-28] MEDS ORDERED: NEOSTIGMINE METHYLSULFATE 5 MG/5 ML SYR ONE (11:03)
[2020-01-28] MEDS: POLYETHYLENE (MIRALAX) 17 GM PACK PO SCH ×2 (11:22→21:52)
--- NOTE | 2020-01-28 11:28 | Operative Report ---
Post Operative Report Pre & Post Diagnosis Operation Date: 01/28/20 07:10 Pre-Op Diagnosis: 1. Spasticity. 2. Presence of intrathecal baclofen pump with discontinuity of the catheter. Post-Op Diagnosis: Same I identified the patient and participated in the time-out.: Yes Procedure Operation Date: 01/28/20 07:10 Actual Procedures 1. Explantation of intrathecal catheter.- Iona Starks DO 2. Implantation of new intrathecal catheter. Surgeon Yobani López MD, FIPP Swatcher Iona Starks DO. Estimated Blood Loss 35 Findings Consistent with Post-Op Diagnosis Specimens None Drains None Anesthesia Type General Complications none Disposition Accompanied Patient To Recovery: No Disposition: Recovery Room Description of Procedure INTRATHECAL CATHETER REVISION OPERATIVE REPORT PREOPERATIVE DIAGNOSIS: Nonfunctional intrathecal catheter. POSTOPERATIVE DIAGNOSIS: Same. PROCEDURE: 1. Remove migrated catheter. 2. Insertion of new catheter. 3.. Postoperative reprogramming of intrathecal drug delivery system pump. INDICATIONS: Jose Keating is a 49-year-old male with spasticity and rigidity due to spinal cord injury. He has intrathecal drug delivery system infusing baclofen with good efficacy of until yesterday morning when he started experiencing severe rigidity and spasticity acutely. He presented to the [facility] room where he was given additional baclofen, diazepam and evaluated for any source of infection as a cause of his increased spasticity. Aspiration of the catheter was performed and CSF would not be able to be aspirated. Further imaging demonstrated possible fracture site of the catheter and therefore he was advised to have exploration and possible removal and replacement of the catheter. He agreed and gave informed consent to proceed. COMPLICATIONS: None. ANESTHESIA: General. DESCRIPTION OF PROCEDURE: The patient had an existing intrathecal pump with the catheter that had migrated in the epidural space. Patient was not achieving the efficacy from the intrathecal dose of the baclofen. Evaluation limited the catheter to be not in the thecal space. Prior to starting, the Patients diagnosis and the procedure were reviewed with the patient in detail. Possible risks and complications including infection, bleeding, damage to surrounding structures and increased pain were discussed. Alternative therapies were also reviewed. Patients questions were answered and they agreed to proceed. Informed consent was obtained. Allergies and medication list was reviewed. Biplanar fluoroscopy was used to assist in placement of the needle as well as to evaluate the final needle and catheter positions. The patient was brought to the operating room and general anesthesia was induced by members of the department. Patient was then placed in left lateral decubitus position. Immediately prior to starting the procedure, a ``time out was conducted with the staff where the patient was identified, proposed procedure was verified, consent was reviewed and the proper site for the planned procedure was identified. Preoperative antibiotics for prophylaxis were given through the IV. On examination, no signs of skin breakdown or infection were noted at the injection site. The site was cleansed with DuraPrep followed by Betadine. Sterile drapes were applied in the usual fashion. Incision was made at the previous catheter insertion site. The existing catheter was located and anchor was disconnected and removed. Inspection of the catheter demonstrated a partial fracture at 29 cm ade. It was therefore elected to replace the catheter. Next, using biplanar fluoroscopy an 16-gauge Touhy needle was used to gain access to the intrathecal sac at L2/L3 interspace. Clear free cerebral spinal fluid flow without any blood. Catheter was threaded so that the catheter tip was at the portion of T8 vertebra. Stylet was removed and free CSF flow was aspirated. Touhy needle was then removed. The intrathecal catheter was secured to the dorso-lumbar fascia with 2 purse string 0-0 silk sutures. The anchoring device was then placed over the catheter and secured using 0 silk. Next, the medial portion of the pump pocket site was opened using scalpel electrocautery. The connector was identified and disconnected. The entire catheter was removed through the pump pocket site without any remaining pieces of the cath. Using a tunneling device wound was then passed to the pocket site and connected to the pump using the connector device. Both wounds were then irrigated with Betadine containing normal saline. Hemostasis was achieved. Deep layers were closed using 0 antibiotic-coated Stratafix suture and superficial layer to close using 3-0 antibiotic-coated Stratafix suture. Perineo dressing followed by 4 x 4 gauze and Tegaderm were used for dressing. Pump was then reprogrammed program to deliver baclofen for 50 mcg/day (10% reduction). Concentration of the medication was 20 mcg/mL. Catheter volume was 0.251 mL with the prime volume of 0.311 mL. Total length of catheter utilized was 114.3 cm. No complications were noted throughout the procedure. The patient tolerated the procedure and general anesthesia without obvious complications.. Patient was allowed to emerge from anesthesia at the end of the procedure and transferred back to the stretcher. Patient was transported to the recovery room in stable condition. The patient will follow up with our clinic within 7 days for a wound check and then plan to have the vero removed at day 14. Level of catheter: T8 Catheter trimmed to: 0 cm. Total length 114.3 cm Medication placed in pump: Baclofen 3000 mcg/mL. Total daily dose of 450 micrograms per day. I attest to the content of the Intraoperative Record and any orders documented therein. Any exceptions are noted below.
[2020-01-28] MEDS ORDERED: ceFAZolin 2000MG 2,000 MG/15 ML SYR IV ONE (11:34)
[2020-01-28] MEDS ORDERED: HYDROCODONE/ACETAMOPHEN 5/325MG TAB PO PRN (12:15)
--- NOTE | 2020-01-28 12:48 | Anesthesiology Progress Note ---
Date of Service January 28, 2020 Anesthesia Post Procedure Vital Signs Vital Signs: Temp Pulse Pulse Pulse Resp BP BP 01/28/20 12:30 36.9 C 106 H 19 107/63 01/28/20 12:20 36.9 C 109 H 20 108/70 01/28/20 12:10 106 H 18 104/63 01/28/20 12:00 108 H 20 119/70 01/28/20 11:50 107 H 21 104/64 01/28/20 11:43 36.1 C L 101 H 16 121/98 01/28/20 07:45 36.2 C L 99 H 20 147/79 H 01/28/20 07:40 94 H 01/28/20 04:00 36.6 C 92 H 20 104/69 01/28/20 01:27 75 01/27/20 19:36 37 C 101 H 113 H 20 01/27/20 18:30 108/71 01/27/20 18:00 130/84 01/27/20 17:38 87 18 01/27/20 17:00 129/75 01/27/20 16:30 81 116/72 01/27/20 15:47 98/54 L 01/27/20 14:30 102 H 21 115/74 01/27/20 14:00 102 H 21 107/72 01/27/20 13:51 105 H 21 128/71 BP Pulse Ox Pulse Ox 01/28/20 12:30 94 01/28/20 12:20 94 01/28/20 12:10 96 01/28/20 12:00 99 01/28/20 11:50 98 01/28/20 11:43 98 01/28/20 07:45 94 01/28/20 07:40 01/28/20 04:00 97 01/28/20 01:27 01/27/20 19:36 129/80 95 95 01/27/20 18:30 95 01/27/20 18:00 95 01/27/20 17:38 120/67 94 01/27/20 17:00 94 01/27/20 16:30 96 01/27/20 15:47 95 01/27/20 14:30 95 01/27/20 14:00 93 01/27/20 13:51 94 Transfer of Care Handoff Completed per policy Notes Mental Status: alert / awake / arousable Patient Amnestic to Procedure: Yes Nausea / Vomiting: adequately controlled Pain: adequately controlled Airway Patency, RR, SpO2: stable & adequate BP & HR: stable & adequate Hydration State: stable & adequate Anesthetic Complications: no major complications apparent
[2020-01-28] MEDS ORDERED: VENLAFAXINE HCL XR 150 MG CAPXR PO SCH (21:00)
[2020-01-28] MEDS ORDERED: VENLAFAXINE HCL XR 75 MG CAPXR PO SCH (21:00)
[2020-01-28] MEDS: LIDOCAINE 5% 1 PATCH TD SCH (21:40)
[2020-01-28] MEDS: VENLAFAXINE HCL XR 75 MG CAPXR PO SCH ×2 (21:40→21:43)
[2020-01-28] MEDS: VENLAFAXINE HCL XR 150 MG CAPXR PO SCH (21:40)
[2020-01-28] MEDS: SIMVASTATIN 20 MG TAB PO SCH (21:44)
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
[2020-01-29] MEDS: POLYETHYLENE (MIRALAX) 17 GM PACK PO SCH ×2 (08:11→21:03)
[2020-01-29] MEDS ORDERED: Nursing to Pharmacy Communication SCH (08:15)
[2020-01-29] MEDS ORDERED: BACLOFEN 20 MG TAB PO ONE (08:30)
--- NOTE | 2020-01-29 11:24 | Billing Data ---
Date of Service January 27, 2020 Coding Level of Care Code 29951 OBS Care - Level 3
--- NOTE | 2020-01-29 11:28 | Pain Management Progress Note ---
Date of Service January 29, 2020 Assessment & Plan (1) Presence of intrathecal baclofen pump: * Improvement after catheter replacement * Discharge today with follow up in [facility] next week.. Present on Admission?: Yes (2) Spasticity: Admission and Anticipated Discharge Date Admission Date: January 28, 2020 Subjective Dennis reports less rigidity today after the replacement of intrathecal catheter. He still reports some stiffness in upper and lower extremities, but notes significant improvement. Denies any pain. Has not been OOB. Physical Exam Constitutional: comfortable; no acute distress Respiratory: normal respiratory effort; no respiratory distress and no labored breathing Gastrointestinal (Abdomen): Inspection/Auscultation: abdomen normal to inspection Pump site unremarkable. Dressing intact. Musculoskeletal: flexion contractures in the upper extremities. 2/5 rigidity in legs. L/S spine wound site intact.
[2020-01-29] MEDS ORDERED: diazePAM 2 MG TABLET PO ONE (17:17)
[2020-01-29] MEDS: SIMVASTATIN 20 MG TAB PO SCH (21:02)
[2020-01-29] MEDS: VENLAFAXINE HCL XR 150 MG CAPXR PO SCH (21:02)
[2020-01-29] MEDS: diazePAM 5 MG TABLET PO SCH (21:02)
[2020-01-29] MEDS: LIDOCAINE 5% 1 PATCH TD SCH ×2 (21:03→22:13)
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
[2020-01-30] MEDS ORDERED: BACLOFEN 10 MG TAB PO ONE (08:51)
--- NOTE | 2020-01-30 09:15 | Pain Management Progress Note ---
Date of Service January 30, 2020 Assessment & Plan (1) Presence of intrathecal baclofen pump: * Improvement after catheter replacement, I increased his intrathecal pump 8% today to run at baclofen 486 mcg/day. He has oral baclofen at home should he require additional baclofen prior to his appointment this for rigidity or spasm. * He declines any oral opiates at discharge and reports Tylenol is sufficient in controlling his pain. * In regards to urinary retention, will initiate Flomax 0.4 mg p.o. every morning and have self-catheterization teaching performed today prior to discharge. 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 Consider urology consult should he have persistent difficulty with urinary retention but suspect this is postop opiate induced. * Discharge today with follow up in Pain Clinic this at 2:30 PM. Orders are written. Patient and are satisfied with care and agreeable for discharge today. (2) Spasticity: Admission and Anticipated Discharge Date Admission Date: January 28, 2020 Subjective POD#2 after intrathceal catheter replacement. Uneventful o/n. Some urinary r etention requiring straight cath.. He still reports some stiffness in upper and lower extremities, but notes significant improvement. Denies any pain. Out of bed x1. Patient was able to stand at the bedside yesterday for at least 3 minutes. Physical Exam Physical Exam: Constitutional: Well-developed, well-nourished, healthy- appearing, normal weight accompanied by his on today's examination Psych: Awake, alert, and oriented 3 with normal affect and mood. Recent memory appears grossly intact Eyes: Pupils are equally round and reactive to light with normal size pupils, eyelids appear normal Ear, nose, mouth, and throat: Moist nasal and oral membranes, lips and tongues appear normal, no external ear abnormalities are noted Neck: The trachea is midline without deviation and no thyromegaly is noted Respiratory: Normal respiratory effort without distress, no audible wheezes or rhonchi CV: Normal S1 and S2 extremities are warm Chest: Deferred GI/abdomen: Non-tender without guarding, no masses noted. Intrathecal pump noted in right lower quadrant Prineo is in place, no erythema fluctuance drainage or dehiscence noted at incision. Musculoskeletal: Head is normocephalic and atraumatic, gait is not observed. Bilateral upper and lower extremity much improved from my examination on 01/28/2020. I am able to passively extend his upper and lower extremities with out difficulty. Some rigidity still noted but greatly improved. Thoracic: Kyphotic curve: Normal Axial intrathecal pump incision healing without erythema fluctuance or drainage. Lumbar: Lordotic curve: Normal Skin: No rashes, lesions, ulcers, or induration noted Neuro: No nystagmus noted, the tongue is midline, the patient is able to rotate their head bilaterally : Deferred
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
[2020-01-30] MEDS: TAMSULOSIN HCL 0.4 MG CAP PO SCH (09:39)
[2020-01-30] MEDS: POLYETHYLENE (MIRALAX) 17 GM PACK PO SCH ×2 (09:39→20:43)
[2020-01-30] MEDS: diazePAM 5 MG TABLET PO SCH (20:42)
[2020-01-30] MEDS: VENLAFAXINE HCL XR 75 MG CAPXR PO SCH (20:44)
[2020-01-30] MEDS: VENLAFAXINE HCL XR 150 MG CAPXR PO SCH (20:44)
[2020-01-30] MEDS: SIMVASTATIN 20 MG TAB PO SCH (20:45)
[2020-01-30] MEDS: LIDOCAINE 5% 1 PATCH TD SCH (20:45)
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
--- NOTE | 2020-01-31 07:58 | Pain Management Progress Note ---
Date of Service January 31, 2020 Assessment & Plan (1) Muscle spasticity: (2) Presence of intrathecal baclofen pump: * Baclofen dosage was increase by 10% today. Daily dose is now 534mcg/day. * Oral Baclofen has been ordered for breakthrough spasticity * Continue to straight cath if needed * Pump refill is scheduled for 03/08/2020 at 1300. * Patient will continue to work on standing and walking. * Continue to wear abdominal binder x 8 weeks. * If feeling safe to return home this afternoon, he plans to be discharged. Admission and Anticipated Discharge Date Admission Date: January 28, 2020 Subjective Mr. Keating does report a slight improvement in lower extremity spasticity with yesterday's 8% dosage increase. He was able to stand twice yesterday but with assistance. He has continued to require straight catheterization last night and this morning. He has not required any [place] during his admission. No pain at the incision site. Yesterday the patient did not feel well enough to go home. Last bowel movement was 10/8. Patient denies any constitutional complaints. No abdominal pain. Physical Exam Physical Exam: GENERAL: Speech and cognition is intact. Mood and affect is appropriate. Does not appear in acute distress. Accompanied by his . LOWER EXTREMITIES: The legs are rigid. No spontaneous spasticity noted. NEURO: Awake, alert, and oriented x 3. SKIN: The incision site appears to be healing well. Prineo in place. No erythema, warmth, or drainage at the incision site. Dressings changed.
[2020-01-31] MEDS: POLYETHYLENE (MIRALAX) 17 GM PACK PO SCH ×2 (09:57→20:06)
[2020-01-31] MEDS: TAMSULOSIN HCL 0.4 MG CAP PO SCH (09:57)
[2020-01-31] MEDS ORDERED: bisacodyL 10 MG SUPP PR STA (12:27)
[2020-01-31] MEDS: BACLOFEN 10 MG TAB PO PRN (16:34)
[2020-01-31] MEDS: diazePAM 5 MG TABLET PO SCH (20:05)
[2020-01-31] MEDS: VENLAFAXINE HCL XR 75 MG CAPXR PO SCH (20:06)
[2020-01-31] MEDS: SIMVASTATIN 20 MG TAB PO SCH (20:06)
[2020-01-31] MEDS: VENLAFAXINE HCL XR 150 MG CAPXR PO SCH (20:06)
[2020-01-31] MEDS: LIDOCAINE 5% 1 PATCH TD SCH (20:20)
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
--- NOTE | 2020-02-01 08:50 | Pain Management Progress Note ---
Date of Service February 01, 2020 Assessment & Plan (1) Muscle spasticity: (2) Presence of intrathecal baclofen pump: * Intrathecal baclofen dosage was not changed at today's visit. * Take oral Baclofen if needed for breakthrough spasticity. * He is now able to void without the use of straight cath. He will not need to straight cath on discharge. * Pump refill is scheduled for 03/08/2020 at 1300. * Patient will continue to work on standing and walking. * He has been immobile for several days which is causing rigidity to worsen. 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 * Wound check will be scheduled in the office on 02/05 at 1330. Denise Garcia is reporting moderate improvement in spasticity since the 10% dosage increase of intrathecal baclofen yesterday. He did take one oral Baclofen yesterday. He has been able to stand several times yesterday but unable to take steps to walk. No incisional pain and has not required the use of [place]. Last night he started to urinate without catheterization. He will work with physical therapy to get his ROM back to his baseline on discharge. Physical Exam Physical Exam: GENERAL: Speech and cognition is intact. Mood and affect is appropriate. Does not appear in acute distress. UPPER EXTREMITIES: Adequate ROM of the shoulders. Rigidity of the fingers, hands, and elbows (slow to his baseline) LOWER EXTREMITIES: Rigidity of the calves causing plantar flexion of the feet. Good strength and ROM of the hips. No spontaneous spasticity noted. NEURO: Awake, alert, and oriented x 3. SKIN: The incision sites appear to be healing well. Prineo in place. No erythema, warmth, or drainage noted. Dressings changed.
[2020-02-01] MEDS: TAMSULOSIN HCL 0.4 MG CAP PO SCH (10:08)
[2020-02-01] MEDS: POLYETHYLENE (MIRALAX) 17 GM PACK PO SCH (10:08)
[2020-02-01] MEDS: BACLOFEN 10 MG TAB PO PRN (12:42)
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
--- NOTE | 2020-02-01 17:01 | Pain Management Progress Note ---
Date of Service February 01, 2020 Assessment & Plan (1) Muscle spasticity: (2) Presence of intrathecal baclofen pump: * Intrathecal baclofen dosage was decreased by 5% to run at baclofen 507 mcg/day. * A long discussion for approximately 20 to 30 minutes between myself him and his and Huyen Soriano RN took place today. If he continues to have difficulty with ambulation will consider advanced imaging of his cervical spine to confirm myelomalacia is stable. This will be addressed at his office visit on 02/06/20. We discussed allowing him to return to his home environment and recover prior to consideration for cervical spine work-up as he appears to be improving with each day postoperatively. Patient, his are in agreement. * Continue Flomax currently will consider discontinuation as an outpatient she did continue to have limited difficulty with urinary retention. * Take oral Baclofen if needed for breakthrough spasticity. * He is now able to void without the use of straight cath. He will not need to straight cath on discharge. * Pump refill is scheduled for 03/08/2020 at 1300. * Patient will continue to work on standing and walking with his physical therapist at home. * Continue to wear abdominal binder x 8 weeks. * Wound check will be scheduled in the office on 02/05 at 1330. Admission and Anticipated Discharge Date Admission Date: January 28, 2020 Subjective 49-year-old male who is reporting dramatic improvement in overall spasm in the last 24 hours. He notes that he actually prefers his intrathecal pump is decreased by 5% today so that he has more rigidity and less foot drop to permit him to ambulate. He continues to urinate without difficulty and denies any incisional pain. He has been able to pivot transfer and stand with limited difficulty. Physical Exam Physical Exam: Constitutional: Well-developed, well-nourished, healthy- appearing, normal weight accompanied by his on today's examination Psych: Awake, alert, and oriented 3 with normal affect and mood. Recent memory appears grossly intact Eyes: Pupils are equally round and reactive to light with normal size pupils, eyelids appear normal Ear, nose, mouth, and throat: Moist nasal and oral membranes, lips and tongues appear normal, no external ear abnormalities are noted Neck: The trachea is midline without deviation and no thyromegaly is noted Respiratory: Normal respiratory effort without distress, no audible wheezes or rhonchi CV: Normal S1 and S2 extremities are warm Chest: Deferred GI/abdomen: Non-tender without guarding, no masses noted. Intrathecal pump noted in right lower quadrant Prineo is in place, no erythema fluctuance d rainage or dehiscence noted at incision. Musculoskeletal: Head is normocephalic and atraumatic, gait is not observed. Sitting in wheelchair during examination. Abdominal binder is in place. Bilateral upper and lower extremity without significant spasm. I am able to passively extend his upper and lower extremities with out difficulty. He is able to open his hands without difficulty. Minimal spasm noted. Thoracic: Kyphotic curve: Normal Axial intrathecal pump incision healing without erythema fluctuance or drainage. Lumbar: Lordotic curve: Normal Skin: No rashes, lesions, ulcers, or induration noted Neuro: No nystagmus noted, the tongue is midline, the patient is able to rotate their head bilaterally : Deferred
== END 2020-02-01 18:09 | disposition home or self-care (01) | DRG 92 ==
LOC: ED 10:03 → 2W 10:03 → SUATTDRO 01-28 11:56 → 3N 02-01 07:10